=== PATIENT | female | born 2000 | race Caucasian/White ===

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

== ENCOUNTER 2022-10-21 05:58 | Emergency (ER) | payer OTHER, SELFPAY ==
--- NOTE | 2022-10-21 | ECG_ITS ---
Test Reason : TACHYCARDIA Blood Pressure : / mmHG Vent. Rate : 120 BPM Atrial Rate : 120 BPM P-R Int : 122 ms QRS Dur : 082 ms QT Int : 296 ms P-R-T Axes : 063 063 010 degrees QTc Int : 418 ms Sinus tachycardia RSR' or QR pattern in V1 suggests right ventricular conduction delay Possible Left atrial enlargement T wave abnormality, consider inferior ischemia Abnormal ECG No previous ECGs available Referred By: Generic ED Physician Electronically Signed By:LASHONDA BURROUGHS MD
--- NOTE | ~2022-10-21 | CT_ITS ---
CT SOFT TISSUE NECK WITH IV CONTRAST CLINICAL INFORMATION: Tonsillitis. COMPARISON: None available. TECHNIQUE: Following the intravenous administration of 100 mL of Omnipaque 350 intravenous contrast, helical imaging was performed in the axial plane with generation of coronal and sagittal reformatted images. This CT examination was performed using dose optimization techniques as appropriate, variously including the following: *Automated exposure control *Adjustment of mA and/or kV according to patient size (this includes techniques or standardized protocols for targeted exams where dose is matched to indication/reason for exam; i.e. extremities or head) *Use of iterative reconstruction technique FINDINGS: The left palatine tonsil is enlarged and exhibits heterogeneous enhancement in keeping with palatine tonsillitis. There is also a multiloculated peripherally enhancing collection along the anterior margin of the left palatine tonsil measuring up to 2 cm in size compatible with a peritonsillar abscess. Partial effacement of the oropharynx. There is cellulitis within the left parapharyngeal fat pad adjacent to the inflamed left palatine tonsil. There are no retropharyngeal fluid collections. The orbital soft tissues, the parotid glands, and the submandibular glands are unremarkable. There is a 3 mm hypodense nodule within the left thyroid lobe that is below size criteria for follow-up. Imaged lungs are clear. Imaged upper mediastinum is unremarkable. There are no acute osseous findings. CT/CT soft tissue neck w IV con IMPRESSION: Imaging findings compatible left palatine tonsillitis with an associated large up to 2 cm multiloculated left peritonsillar abscess. Partial effacement of the oropharynx.
[2022-10-21 06:14] VITALS: BP 131/79; PULSE 136; RESP 20; TEMP 39.2; O2SAT 99; BMI 18.9
[2022-10-21 06:42] LABS: Basophils Percent Auto 0.2 % (0-2); Hematocrit 39.4 % (37.0-47.0); Hemoglobin 13.4 g/dl (12.0-16.0); Imm Gran Abs Auto 0.11 X10*3/uL (0.00-0.03); Imm Gran Pct Auto 0.7 % (0.0-0.4); Lymphocytes Absolute Auto 0.9 X10*3/uL (1.2-4.9); Lymphocytes Percent Auto 5.6 % (20-40); MANUAL DIFF FLAG SCAN; Mean Corpuscular Hemoglobin 29.6 pg (27.0-33.0); Mean Corpuscular Volume 87.2 fL (80.0-98.0); Mean Platelet Volume 10.2 fL (9.4-12.3); Monocytes Absolute Auto 2.7 X10*3/uL (0.1-1.2); Monocytes Percent Auto 16.2 % (2-11); Neutrophils Absolute Auto 12.7 x10*3/uL (2.0-8.3); Neutrophils Percent Auto 77.3 % (45-73); Platelet Count 253 X10*3/uL (160-400); Red Blood Count 4.52 X10*6/uL (4.20-5.50); Red Cell Distribution Width 11.9 % (11.0-16.0); SCAN SMEAR FLAG 1; White Blood Count 16.4 X10*3/uL (4.8-10.8)
[2022-10-21 07:04] VITALS: BP 131/78; PULSE 122; RESP 22; TEMP 38.4; O2SAT 98
[2022-10-21 07:14] LABS: SLIDE REVIEW VERIFIED
[2022-10-21 07:15] LABS: Anion Gap 16 (12-20); Blood Urea Nitrogen 7 mg/dL (9-16); Calcium 9.9 mg/dL (8.4-10.2); Carbon Dioxide 21 mmol/L (22-29); Chloride 101 mmol/L (96-108); Creatinine Clr Calc Pharmacy 85.3; Estimated Glomerular Filt Rate > 60; Glucose Random 132 mg/dL (60-115); Potassium 3.8 mmol/L (3.3-5.1); Sodium 134 mmol/L (135-145)
--- OUTSIDE RECORDS SUMMARY | 2022-10-21 07:22 | XMS_ITS | Continuity of Care Document ---
:2000 Author Organization [facility] Address [address] [place] [id number]- Care Team Providers Name Role Phone Enrico COATS, Yanelis Hull Primary Care Physician Encounter [facility] [place] Date(s): 10/27/21 - 10/28/[address] [address]- Encounter Diagnosis Viral URI with cough (Final) - 10/28/21 Discharge Disposition: A-D/C Home Attending Physician: Nayana Walton MD Admitting Physician: Nayana Walton MD Referring Physician: Not on Staff, Referring MD Allergies, Adverse Reactions, Alerts Substance Reaction Severity Status amoxicillin rash Persistent Severe Active Medications Medrol 4 mg oral tablet 1 tablet = 4 mg, By Mouth, Daily, # 7 tablet, 0 Refills, Maintenance, 02/08/19 14:10:49 EDT, Tablet Start Date: 02/08/19 Stop Date: 02/15/19 Status: OrderedPeridex 0.12% liquid 15 mL = 0.018 Gm, By Mouth, 2 times a day, # 480 mL, 0 Refills, Maintenance, 02/08/19 14:10:40 EDT, Liquid Start Date: 02/08/19 Status: Ordered Results Radiology Reports Exam Date Time Procedure Performing Provider Status 10/27/21 5:25 PM Chest 2 Views Frontal and Lat Kibe , Najma; Au th (Verified) Notes:(Chest 2 Views Frontal and Lat) Reason For Exam: Chest Pain;Other:RESULT: Chest 2 Views Frontal and Lat Chest 2 Views Frontal and Lat Hx of Present Illness: sob today with flu like symptoms for one week. vaccinated, covid test last wednesday was neg, rales on exper; Reason: Other:; Chest Pain; Clinical Question(s): Other: COMPARISON: None FINDINGS: LINES AND TUBES: None. LUNGS AND PLEURA: The lungs are clear. No pleural effusion. No pneumothorax. HEART, MEDIASTINUM AND MELANIE: Normal. BONES AND SOFT TISSUES: Normal. IMPRESSION: Normal. WSN: [id number] Ordering Physician: Nayana Walton Dictated By: Bing Fitch MD Dictated Date/Time: 10/27/21 5:31 pm Reviewed By: Bing Fitch MD Signed By: Bing Fitch MD Signed Date/Time: 10/27/21 5:31 pm Transcribed By: AMILCAR Transcribed Date/Time: 10/27/21 5:26 pm Vital Signs Most recent to oldest 1 2 3 [Reference Range]: Height 155 cm 155 cm (10/28/21 9:07 AM) (10/28/21 8:18 AM) Weight 41 kg 41 kg (10/28/21 9:07 AM) (10/28/21 8:18 AM) Oxygen Saturation [94-100 100 % 99 % 100 % %] (10/28/21 12:44 PM) (10/28/21 8:18 AM) (10/28/21 7: 38 AM) Pulse Rate [55-90 bpm] 97 bpm 83 bpm 90 bpm *H* (10/28/21 8:18 AM) (10/28/21 7:38 AM) (10/28/21 12:44 PM) Blood Pressure 119/70 mm Hg 107/69 mm Hg 104/86 mm Hg [90-138/55-84 mm Hg] (10/28/21 12:44 PM) (10/28/21 8:18 AM) ( 7:38 AM) Respiratory Rate [16-30 15 br/min 16 br/min 18 br/mi n br/min] *L* (10/28/21 8:18 AM) (10/28/21 7:38 AM) (10/28/21 12:44 PM) Temperature [96.8-100.4 98.2 DegF 98.6 DegF 98.7 Deg F DegF] (10/28/21 12:44 PM) (10/28/21 8:18 AM) (10/28/21 7: 38 AM) Mode of Delivery (Oxygen) Room air Room air Room a ir (10/28/21 12:44 PM) (10/28/21 8:18 AM) (10/28/21 7: 38 AM) Blood pressure sites Arm, right Arm, left Arm, right (10/28/21 12:44 PM) (10/28/21 8:18 AM) (10/28/21 7: 38 AM) Temperature Route Oral Oral Oral (10/28/21 12:44 PM) (10/28/21 8:18 AM) (10/28/21 7: 38 AM) Dry Weight 41 kg (10/28/21 9:07 AM) Weight Obtained Via Patient/family stated (10/28/21 8:18 AM)
--- OUTSIDE RECORDS SUMMARY | 2022-10-21 07:22 | XMS_ITS | Continuity of Care Document ---
:2000 Author Organization [facility] Address [address] [place] [id number]- Care Team Providers Name Role Phone Yanelis Weston MD Primary Care Physician [place] [facility] [place]/22 [facility] [address] [place] [id number] Allergies, Adverse Reactions, Alerts Substance Reaction Severity [...] EDT, Liquid Start Date: 02/08/19 Status: Ordered Problem List Condition Effective Dates Status Health Status Informant Underweight(Confirmed) Active Social History Social History Type Response Smoking Status Never (less than 100 in life time) entered on: 06/16/22 Sex
--- OUTSIDE RECORDS SUMMARY | 2022-10-21 07:22 | XMS_ITS | Continuity of Care Document ---
:2000 Author Organization [facility] Address [address] [place] [phone]- Care Team Providers Name Role Phone Yanelis Weston MD Primary Care Physician Encounter [facility] [place] Date(s): 06/16/22 - 06/23/22 [facility] [address] [place] [address] [address] [place], [place] [id number] Attending Physician: Maureen Driscoll MD Referring Physician: Yanelis Weston MD Allergies, Adverse Reactions, Alerts Substance Reaction [...] Dates Status Health Status Informant Underweight(Confirmed) Active Procedures Procedure Date Related Diagnosis Body Site Status Duck tooth Completed Vital Signs Most recent to oldest [Reference Range]: 1 Height 167 cm (06/16/22 2:25 PM) Weight 45.3 kg (06/16/22 2:25 PM) Body Mass Index [18.5-24.99] 16.24 *L* (06/16/22 2:25 PM) Dry Weight 45.3 kg (06/16/22 2:25 PM) Weight Obtained Via Standing scale (06/16/22 2:25 PM) Dry Weight Obtained Via Standing scale (06/16/22 2:25 PM) Social History Social History Type Response Smoking Status Never (less than 100 in life time) entered on: 06/16/22 Sex
--- OUTSIDE RECORDS SUMMARY | 2022-10-21 07:22 | XMS_ITS | Continuity of Care Document ---
:2000 Author Organization [facility] Address [address] [place] [phone]- Care Team Providers Name Role Phone Yanelis Weston MD Primary Care Physician Encounter [facility] Date(s): 06/16/22 - 07/16/22 [facility] [address] [place] [id number] Attending Physician: Neida Coleman Admitting Physician: AdmtrNeida Referring Physician: Admtr, ArCodey Allergies, Adverse Reactions, Alerts Substance Reaction Severity [...] in life time) entered on: 06/16/22 Sex Care Team PersonnelName: Yanelis Weston MD Address: [address] [place] [address] [facility] [place], [place] [address]
[2022-10-21 08:03] LABS: B Type Natriuretic Peptide 15 pg/mL (<100)
[2022-10-21 08:04] LABS: COVID-19 Test Negative (Negative); IDNOW Serial# 16C4AD1C
[2022-10-21 08:07] LABS: Strep A Nucleic Acid Invalid (Negative)
--- NOTE | 2022-10-21 08:26 | PC.NURSE ---
1 strep swab came back invalid re collected and sent
--- NOTE | 2022-10-21 08:32 | ED.URI ---
HPI - URI/Sore Throat General Chief Complaint: Fever Stated Complaint: trouble breathing Time Seen by Provider: 10/21/22 08:12 Related Data Home Medications Medication Instructions Recorded Confirmed desogestrel 0.15 mg-ethinyl 1 tab PO DAILY 10/21/22 10/21/22 estradiol 0.03 mg tablet (Apri) Allergies Allergy/AdvReac Type Severity Reaction Status Date / Time amoxicillin Allergy Rash Verified 10/21/22 06:17 Review of Systems Review of Systems: Review of systems: General: Patient denies any fever chills recent illness or falls Musculoskeletal: Denies back pain or body aches or other injuries HEENT: denies headache, runny nose, ear pain Respiratory: denies shortness of breath, cough Cardiovascular: no chest pain or palpitations : denies dysuria, frequency Abdomen: no nausea vomiting denies abdominal pain Extremities: no swelling, no pain Skin: no diaphoresis Yes all other systems are reviewed and are negative PMFSH Social History Social History Advance Directives: No Physical Exam Vital Signs: Vital Signs: Last Vital Signs Temp 103.0 F H 10/21/22 08:57 Pulse 135 H 10/21/22 08:57 Resp 26 H 10/21/22 08:57 BP 129/80 10/21/22 08:57 Pulse Ox 99 10/21/22 08:57 O2 Del Method 10/21/22 08:57 BMI result Body Mass Index 18.9 General: Ill-appearing well-nourished in no signs of distress HEENT: Normocephalic atraumatic throat is full obvious tonsillar exudates no obvious abscesses. Neck: Lymphadenopathy No signs of JVD, no masses no tenderness Cardiovascular: Regular rate and rhythm Respiratory: Clear to auscultation bilaterally Abdomen: Soft nontender no masses Extremities: Normal pedal pulses no signs of edema Skin: Dry warm no rashes Back: No tenderness full ROM Medications Administered Discontinued Medications Generic Name Dose Route Start Last Admin Trade Name Glennq PRN Reason Stop Dose Admin Acetaminophen 650 mg 10/21/22 08:29 10/21/22 09:21 Acetaminophen 325 Mg Tablet PO 10/21/22 08:30 Not Given ONCE ONE Acetaminophen 650 mg 10/21/22 09:14 10/21/22 09:20 Acetaminophen Oral Liquid 650 Mg/20.3 Ml Solution PO 10/21/22 09:15 650 mg ONCE ONE Administration Dexamethasone Sodium Phosphate 10 mg 10/21/22 08:34 10/21/22 09:05 Dexamethasone Sod Phosphate 10 Mg/Ml Vial IVPUSH 10/21/22 08:35 10 mg ONCE ONE Administration Diphenhydramine HCl 25 mg 10/21/22 09:35 10/21/22 09:51 Diphenhydramine Hcl 50 Mg/Ml Vial IVPUSH 10/21/22 09:36 25 mg ONCE ONE Administration Famotidine 20 mg 10/21/22 09:35 10/21/22 09:50 Famotidine/Pf 20 Mg/2 Ml Vial IVPUSH 10/21/22 09:36 20 mg ONCE ONE Administration Sodium Chloride 1,000 mls @ 999 mls/hr 10/21/22 08:30 10/21/22 10:30 Ns IV 10/21/22 09:30 Infused .Q1H1M NELSON Infusion Cefepime HCl 1 gm/ Sodium 50 mls @ 100 mls/hr 10/21/22 08:32 10/21/22 09:32 Chloride IV 10/21/22 09:01 0 mls/hr ONCE ONE Infusion Sodium Chloride 1,000 mls @ 999 mls/hr 10/21/22 11:30 10/21/22 12:09 Ns IV 10/21/22 12:30 999 mls/hr .Q1H1M NELSON Administration Iohexol 60 ml 10/21/22 10:45 10/21/22 10:46 Iohexol 350 Mg/Ml 100 Ml Infus..Btl IV 10/21/22 10:46 60 ml ONCE ONE Administration Ketorolac Tromethamine 15 mg 10/21/22 08:29 10/21/22 09:05 Ketorolac Tromethamine 15 Mg/Ml Vial IVPUSH 10/21/22 08:30 15 mg ONCE ONE Administration MDM - URI/Sore Throat MDM Narrative Medical decision making narrative: With 22-year-old with known tonsillitis this is the 5th time having issue she did have to have a tonsil drained previously patient states she started with symptoms 2 days ago. She is not on the scene ENT she is having some difficulty swallowing she was started on antibiotics yesterday after going to the walk-in clinic. 0935 Patient developed hives while getting cefepime she is allergic to PCN I thought a 4th generation cephalosporiin would not have cross reactivity with allergy but apparently she is allergic. I will give pepcid benadryl and the cefepime was stopped. Patient will continue with CT. Labs show signs of infection 1239 CT shows peritonsillar abscess that is loculated with tonsillitis and cellulitis. I went to look and see if I could see the abcess but I am unable to visualize. I will call [facility] for potential transfer for ENT evaluation. 1247 There are no bed at [facility], I will call [facility]. 1255 [facility] spoke to me I explained the story Patient will be accepted Accepted by Dr. Bojorquez Differential Diagnosis Differential diagnosis: Likely pharyngitis Medical Records Attestation: I reviewed the patient's medical records. Medical records narrative: 45 minutes of critical care spent in the care of this patient with antibiotic given calls to get the patient placed at another hospital. Lab Data Attestation: I reviewed the patient's lab results. Result diagrams: 10/21/22 06:36 10/21/22 06:36 Labs: Lab Results 10/21/22 10/21/22 10/21/22 Range/Units 06:36 06:36 07:32 WBC 16.4 H (4.8-10.8) X10*3/uL RBC 4.52 (4.20-5.50) X10*6/uL Hgb 13.4 (12.0-16.0) g/dl Hct 39.4 (37.0-47.0) % MCV 87.2 (80.0-98.0) fL MCH 29.6 (27.0-33.0) pg MCHC 34.0 (31.0-35.0) g/dl RDW 11.9 (11.0-16.0) % Plt Count 253 (160-400) X10*3/uL MPV 10.2 (9.4-12.3) fL Immature Gran % (Auto) 0.7 H (0.0-0.4) % Neut % (Auto) 77.3 H (45-73) % Lymph % (Auto) 5.6 L (20-40) % [place] % (Auto) 16.2 H (2-11) % Eos % (Auto) 0.0 (0-4) % Baso % (Auto) 0.2 (0-2) % Lymph # (Auto) 0.9 L (1.2-4.9) X10*3/uL [place] # (Auto) 2.7 H (0.1-1.2) X10*3/uL Eos # (Auto) 0.0 (0.0-0.4) X10*3/uL Baso # (Auto) 0.0 (0.0-0.2) X10*3/uL Abs Immat Gran (auto) 0.11 H (0.00-0.03) X10*3/uL Absolute Neuts (auto) 12.7 H (2.0-8.3) x10*3/uL Absolute Nucleated RBC 0.000 (0.0-0.012) X10*3/uL Nucleated RBC % (auto) 0.0 (0.0-0.2) /100WBC Smear Tech's Comments VERIFIED Sodium 134 L (135-145) mmol/L Potassium 3.8 (3.3-5.1) mmol/L Chloride 101 (96-108) mmol/L Carbon Dioxide 21 L (22-29) mmol/L Anion Gap 16 (12-20) BUN 7 L (9-16) mg/dL Creatinine 0.73 (0.5-1.4) mg/dL Estim Creat Clear Calc 85.3 Estimated GFR > 60 Random Glucose 132 H (60-115) mg/dL Lactic Acid (0.5-2.0) mmol/L Calcium 9.9 (8.4-10.2) mg/dL B-Natriuretic Peptide 15 (<100) pg/mL Urine Color Urine Appearance Urine pH (5.0-9.0) Ur Specific [place] (1.005-1.025) Urine Protein (Neg-Trace) mg/dL Urine Glucose (UA) (Negative) mg/dL Urine Ketones (Negative) mg/dL Urine Blood (Negative) Urine Nitrite (Negative) Ur Leukocyte Esterase (Negative) Urine RBC (0-2) /HPF Urine WBC (0-5) /HPF Ur Squamous Epith Cells (0-2) /HPF Urine Bacteria (None Seen) Hyaline Casts (0-2) /LPF Urine Test (NEGATIVE) COVID-19 (GULSHAN) (Negative) COVID-19 Clin Com S. pyogenes GrpA JUANA (Negative) 11/30/22 11/30/22 11/30/22 Range/Units 07:32 07:32 08:17 WBC (4.8-10.8) X10*3/uL RBC (4.20-5.50) X10*6/uL Hgb (12.0-16.0) g/dl Hct (37.0-47.0) % MCV (80.0-98.0) fL MCH (27.0-33.0) pg MCHC (31.0-35.0) g/dl RDW (11.0-16.0) % Plt Count (160-400) X10*3/uL MPV (9.4-12.3) fL Immature Gran % (Auto) (0.0-0.4) % Neut % (Auto) (45-73) % Lymph % (Auto) (20-40) % [place] % (Auto) (2-11) % Eos % (Auto) (0-4) % Baso % (Auto) (0-2) % Lymph # (Auto) (1.2-4.9) X10*3/uL [place] # (Auto) (0.1-1.2) X10*3/uL Eos # (Auto) (0.0-0.4) X10*3/uL Baso # (Auto) (0.0-0.2) X10*3/uL Abs Immat Gran (auto) (0.00-0.03) X10*3/uL Absolute Neuts (auto) (2.0-8.3) x10*3/uL Absolute Nucleated RBC (0.0-0.012) X10*3/uL Nucleated RBC % (auto) (0.0-0.2) /100WBC Smear Tech's Comments Sodium (135-145) mmol/L Potassium (3.3-5.1) mmol/L Chloride (96-108) mmol/L Carbon Dioxide (22-29) mmol/L Anion Gap (12-20) BUN (9-16) mg/dL Creatinine (0.5-1.4) mg/dL Estim Creat Clear Calc Estimated GFR Random Glucose (60-115) mg/dL Lactic Acid (0.5-2.0) mmol/L Calcium (8.4-10.2) mg/dL B-Natriuretic Peptide (<100) pg/mL Urine Color Urine Appearance Urine pH (5.0-9.0) Ur Specific [place] (1.005-1.025) Urine Protein (Neg-Trace) mg/dL Urine Glucose (UA) (Negative) mg/dL Urine Ketones (Negative) mg/dL Urine Blood (Negative) Urine Nitrite (Negative) Ur Leukocyte Esterase (Negative) Urine RBC (0-2) /HPF Urine WBC (0-5) /HPF Ur Squamous Epith Cells (0-2) /HPF Urine Bacteria (None Seen) Hyaline Casts (0-2) /LPF Urine Test (NEGATIVE) COVID-19 (GULSHAN) Negative (Negative) COVID-19 Clin Com See Note S. pyogenes GrpA JUANA Invalid Invalid (Negative) 10/21/22 10/21/22 10/21/22 Range/Units 09:07 09:39 10:50 WBC (4.8-10.8) X10*3/uL RBC (4.20-5.50) X10*6/uL Hgb (12.0-16.0) g/dl Hct (37.0-47.0) % MCV (80.0-98.0) fL MCH (27.0-33.0) pg MCHC (31.0-35.0) g/dl RDW (11.0-16.0) % Plt Count (160-400) X10*3/uL MPV (9.4-12.3) fL Immature Gran % (Auto) (0.0-0.4) % Neut % (Auto) (45-73) % Lymph % (Auto) (20-40) % [place] % (Auto) (2-11) % Eos % (Auto) (0-4) % Baso % (Auto) (0-2) % Lymph # (Auto) (1.2-4.9) X10*3/uL [place] # (Auto) (0.1-1.2) X10*3/uL Eos # (Auto) (0.0-0.4) X10*3/uL Baso # (Auto) (0.0-0.2) X10*3/uL Abs Immat Gran (auto) (0.00-0.03) X10*3/uL Absolute Neuts (auto) (2.0-8.3) x10*3/uL Absolute Nucleated RBC (0.0-0.012) X10*3/uL Nucleated RBC % (auto) (0.0-0.2) /100WBC Smear Tech's Comments Sodium (135-145) mmol/L Potassium (3.3-5.1) mmol/L Chloride (96-108) mmol/L Carbon Dioxide (22-29) mmol/L Anion Gap (12-20) BUN (9-16) mg/dL Creatinine (0.5-1.4) mg/dL Estim Creat Clear Calc Estimated GFR Random Glucose (60-115) mg/dL Lactic Acid 1.2 (0.5-2.0) mmol/L Calcium (8.4-10.2) mg/dL B-Natriuretic Peptide (<100) pg/mL Urine Color Yellow Urine Appearance Clear Urine pH 6.0 (5.0-9.0) Ur Specific [place] 1.015 (1.005-1.025) Urine Protein 30 (1+) H (Neg-Trace) mg/dL Urine Glucose (UA) Negative (Negative) mg/dL Urine Ketones 15 (Negative) mg/dL Urine Blood Negative (Negative) Urine Nitrite Negative (Negative) Ur Leukocyte Esterase Negative (Negative) Urine RBC 0-2 (0-2) /HPF Urine WBC 6-10 H (0-5) /HPF Ur Squamous Epith Cells 3-5 (0-2) /HPF Urine Bacteria 1+ (None Seen) Hyaline Casts 0-2 (0-2) /LPF Urine Test (NEGATIVE) COVID-19 (GULSHAN) (Negative) COVID-19 Clin Com S. pyogenes GrpA JUANA Negative (Negative) 10/21/22 Range/Units 10:50 WBC (4.8-10.8) X10*3/uL RBC (4.20-5.50) X10*6/uL Hgb (12.0-16.0) g/dl Hct (37.0-47.0) % MCV (80.0-98.0) fL MCH (27.0-33.0) pg MCHC (31.0-35.0) g/dl RDW (11.0-16.0) % Plt Count (160-400) X10*3/uL MPV (9.4-12.3) fL Immature Gran % (Auto) (0.0-0.4) % Neut % (Auto) (45-73) % Lymph % (Auto) (20-40) % [place] % (Auto) (2-11) % Eos % (Auto) (0-4) % Baso % (Auto) (0-2) % Lymph # (Auto) (1.2-4.9) X10*3/uL [place] # (Auto) (0.1-1.2) X10*3/uL Eos # (Auto) (0.0-0.4) X10*3/uL Baso # (Auto) (0.0-0.2) X10*3/uL Abs Immat Gran (auto) (0.00-0.03) X10*3/uL Absolute Neuts (auto) (2.0-8.3) x10*3/uL Absolute Nucleated RBC (0.0-0.012) X10*3/uL Nucleated RBC % (auto) (0.0-0.2) /100WBC Smear Tech's Comments Sodium (135-145) mmol/L Potassium (3.3-5.1) mmol/L Chloride (96-108) mmol/L Carbon Dioxide (22-29) mmol/L Anion Gap (12-20) BUN (9-16) mg/dL Creatinine (0.5-1.4) mg/dL Estim Creat Clear Calc Estimated GFR Random Glucose (60-115) mg/dL Lactic Acid (0.5-2.0) mmol/L Calcium (8.4-10.2) mg/dL B-Natriuretic Peptide (<100) pg/mL Urine Color Urine Appearance Urine pH (5.0-9.0) Ur Specific [place] (1.005-1.025) Urine Protein (Neg-Trace) mg/dL Urine Glucose (UA) (Negative) mg/dL Urine Ketones (Negative) mg/dL Urine Blood (Negative) Urine Nitrite (Negative) Ur Leukocyte Esterase (Negative) Urine RBC (0-2) /HPF Urine WBC (0-5) /HPF Ur Squamous Epith Cells (0-2) /HPF Urine Bacteria (None Seen) Hyaline Casts (0-2) /LPF Urine Test NEGATIVE (NEGATIVE) COVID-19 (GULSHAN) (Negative) COVID-19 Clin Com S. pyogenes GrpA JUANA (Negative) Discharge Plan Discharge Clinical Impression: Acute tonsillitis, Abscess of tonsil Patient Disposition: Xfer [facility] Transfer Details: Tonsillitis with abscess needing ENT evaluation. Prescriptions: No Action desogestrel-ethinyl estradiol [Apri] 0.15-0.03 mg tablet 1 tab PO DAILY
[2022-10-21 08:57] VITALS: BP 129/80; PULSE 135; RESP 26; TEMP 39.4; O2SAT 99
[2022-10-21] MEDS: Ketorolac Tromethamine 15 MG/ML VIAL IVPUSH (09:05)
[2022-10-21] MEDS: dexAMETHasone sod phosphate 10 MG/ML VIAL IVPUSH (09:05)
[2022-10-21] MEDS: 0.9 % Sodium Chloride 1,000 ML 999 ML IV ×2 (09:07→12:09)
[2022-10-21] MEDS: cefEPime HCl 1 GM in 0.9 % Sodium Chloride 50 ML IV (09:15)
[2022-10-21] MEDS: Acetaminophen Oral Liquid 650 MG/20.3 ML SOLUTION PO (09:20)
[2022-10-21 09:26] LABS: Strep A Nucleic Acid Invalid (Negative)
--- NOTE | 2022-10-21 09:31 | PC.NURSE ---
strep swab #2 also came back invalid, will recollect
--- NOTE | 2022-10-21 09:41 | PC.NURSE ---
this rn was swabbing the pt's throat and both mom and this rn noticed hives on the pt's face, abx stopped and aware
[2022-10-21 09:43] LABS: Lactic Acid 1.2 mmol/L (0.5-2.0)
[2022-10-21] MEDS: Famotidine/PF 20 MG/2 ML VIAL IVPUSH (09:50)
[2022-10-21] MEDS: diphenhydrAMINE HCL 50 MG/ML VIAL 25 MG IVPUSH (09:51)
--- NOTE | 2022-10-21 09:54 | PC.NURSE ---
NOTED HIVES ON PTS FACE, ABX STOPPED, PROVIDER AWARE BENADRYL AND PEPCID GIVEN
[2022-10-21 10:06] LABS: Strep A Nucleic Acid Negative (Negative)
--- NOTE | 2022-10-21 10:14 | PHA.MEDREC ---
Pharmacy Consult ? Medication Reconciliation Pharmacy has completed the medication reconciliation.
[2022-10-21] MEDS: iohexoL 350 MG/ML 100 ML INFUS..BTL 60 ML IV (10:46)
[2022-10-21 11:05] LABS: Appearance Urine Clear; Color Urine Yellow; Glucose Urine UA Negative (Negative); Leukocyte Esterase Urine Negative (Negative); Nitrite Urine Negative (Negative); Specific Gravity - Urine 1.015 (1.005-1.025); UMIC TRIGGER UACC YES; Urine Blood Negative (Negative); Urine Ketones 15 mg/dL (Negative); Urine Protein 30 (1+) mg/dL (Neg-Trace)
[2022-10-21 11:07] LABS: UPreg QC Valid YES; Urine Pregnancy NEGATIVE (NEGATIVE)
[2022-10-21 11:17] LABS: Bacteria Urine 1+ (None Seen); Hyaline Casts Urine 0-2 /LPF (0-2); RBC Urine 0-2 /HPF (0-2); UACC Culture Trigger YES
--- NOTE | 2022-10-21 12:43 | PC.NURSE ---
@1033 DR ALMANZAR REQUESTS CALL OUT TO [facility] PT TX LINE SURYA ANSWERS AND ASKS TO SPEAK WITH DR ALMANZAR THEY ARE CLOSED TO CERTAIN TYPES OF TRANSFERS D/T CAPACITY DR ALMANZAR TAKES OVER CALL RIGHT AWAY
[2022-10-21 12:55] VITALS: BP 103/71; PULSE 89; RESP 16; TEMP 36.6; O2SAT 99
--- NOTE | 2022-10-21 14:08 | PC.NURSE ---
pt will be transferred to [facility], will be going via private car. will be seeing DR Bojorquez ent due to peritoncilar abscess
== END 2022-10-21 14:35 | disposition short-term general hospital (02) ==
PROVIDERS: Internal Medicine; Emergency Provider Student in an Organized Health Care Education/Training Program; PCP Specialist
DX: J03.90 Acute tonsillitis, unspecified (principal); J36 Peritonsillar abscess; Z20.822 Contact with and (suspected) exposure to COVID-19; R50.9 Fever, unspecified; R06.00 Dyspnea, unspecified
CPT/HCPCS: 36415; 70491; 80048; 81001; 81003; 81025; 83605; 83880; 85025; 87040; 87086; 87635; 87651; 93005; 96361; 96374; 96375; 99285; J0692; J1100; J1200; J1885; Q9967

== ENCOUNTER 2023-11-23 18:20 | Outpatient (REF) | payer OTHER, SELFPAY | END 2023-11-23 18:21 | disposition home or self-care (01) | LOC: HO.LNP 18:20 | PROVIDERS: Visit Provider Nurse Practitioner Family | DX: N39.0 Urinary tract infection, site not specified (principal); R31.9 Hematuria, unspecified | CPT/HCPCS: 87086; 87088; 87186 ==

== ENCOUNTER → 2024-06-06 14:01 | Outpatient (BNVA) | payer OTHER, SELFPAY | PROVIDERS: PCP Specialist; Visit Provider Registered Nurse | DX: S39.012A Strain of muscle, fascia and tendon of lower back, initial encounter (principal); X50.9XXA Other and unspecified overexertion or strenuous movements or postures, initial encounter | CPT/HCPCS: 99202 ==

== ENCOUNTER → 2024-06-08 14:00 | Outpatient (BNVA) | payer OTHER, SELFPAY | PROVIDERS: PCP Specialist; Visit Provider Physician Assistant Medical | DX: S39.012A Strain of muscle, fascia and tendon of lower back, initial encounter (principal); X50.0XXA Overexertion from strenuous movement or load, initial encounter; M54.16 Radiculopathy, lumbar region | CPT/HCPCS: 99213 ==

== ENCOUNTER → 2024-06-13 15:13 | Outpatient (BNVA) | payer OTHER, SELFPAY | PROVIDERS: PCP Nurse Practitioner Primary Care; Visit Provider Physician Assistant Medical | DX: S39.012A Strain of muscle, fascia and tendon of lower back, initial encounter (principal); X50.9XXA Other and unspecified overexertion or strenuous movements or postures, initial encounter | CPT/HCPCS: 99213 ==

== ENCOUNTER → 2024-07-04 15:20 | Outpatient (BNVA) | payer OTHER, SELFPAY | PROVIDERS: PCP Nurse Practitioner Primary Care; Visit Provider Physician Assistant Medical | DX: S39.012D Strain of muscle, fascia and tendon of lower back, subsequent encounter (principal); X50.9XXD Other and unspecified overexertion or strenuous movements or postures, subsequent encounter; M54.16 Radiculopathy, lumbar region | CPT/HCPCS: 99213 ==

== ENCOUNTER → 2024-07-25 15:13 | Outpatient (BNVA) | payer OTHER, SELFPAY | PROVIDERS: PCP Nurse Practitioner Primary Care; Visit Provider Registered Nurse | DX: S39.012D Strain of muscle, fascia and tendon of lower back, subsequent encounter (principal); X50.9XXD Other and unspecified overexertion or strenuous movements or postures, subsequent encounter; M54.16 Radiculopathy, lumbar region | CPT/HCPCS: 99213 ==

== ENCOUNTER 2024-07-27 08:00 | Outpatient (RCR) | payer OTHER, SELFPAY ==
--- NOTE | 2024-06-27 08:40 | MHC.PT.EP ---
[facility] [place] [facility] [place] [facility] [place] [facility] [address] Mahi Stiles [address] [phone] F: [phone] F: [phone] F: [phone] F: [phone] Physical Therapy Plan of Care Date of Evaluation: 06/27/24 Date of Surgery: n/a Diagnosis: L lumbar strain w/ radiculopathy Assessment: Patient is a 24 year old female presenting to PT with complaints of pain in her low back. Pt reports onset of pain began 06/06/2024 due to moving a treatment table at work. She presents today with impairments in pain, lumbar ROM, core strength, hip strength, tenderness to palpation. 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 Clinical presentation today is most consistent with signs and sx associated with low back pain and pt will benefit from skilled PT 2 week x 4 weeks to address the following problems and impairments noted upon evaluation: pain, lumbar ROM, core strength, hip strength, tenderness to palpation. These problems limit the patient with the following functional activities: work, ADLs. The prescribed treatment plan of care is medically necessary. Co-morbidities of none were identified and taken into considerations of plan of care. Pt was educated on HEP, role of PT, prognosis, POC. Frequency and Duration: The patient will be seen 2 x week x 4 weeks Short Term Goals: Pt will demonstrate improved hip MMT strength by 1/3 grade in 2 weeks for improved lumbopelvic stability. Pt will demonstrate less tenderness to palpation to her lumbar region in 2 weeks. Fpc Goals: Pt will demonstrate improved Theodore score by 5% in 4 weeks for improved functional mobility. Pt will demonstrate ability to work full duty with min to no pain in 4 weeks pending MD clearance for return to PLOF. Treatment Plan: Modalities to reduce pain, spasms and effusion. Manual therapy to restore motion and function. Therapeutic exercise to improve strength and flexibility. Neuromuscular re-education for posture and balance. Therapeutic activities to return to functional activities of daily living. Electronically signed by: Grace Melton, PT, DPT, ATC Please sign and return to therapist. Thank you for your referral.
--- NOTE | 2024-08-01 08:23 | MHC.PT.DC ---
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 Pt is independent in HEP and ready for d/c. Electronically signed by: Grace Melton, PT, DPT, ATC Please sign and return to therapist. Thank you for your referral.
== END 2024-08-01 08:24 | disposition home or self-care (01) ==
LOC: HO.PTCHIC 08:00
PROVIDERS: PCP Nurse Practitioner Primary Care; Visit Provider Physician Assistant Medical
DX: S39.012D Strain of muscle, fascia and tendon of lower back, subsequent encounter (principal); M54.16 Radiculopathy, lumbar region
CPT/HCPCS: 97110; 97161